=== PATIENT | female | born 1965 | race Caucasian/White ===

== ENCOUNTER 2018-01-07 23:10 | Emergency (ER) | payer BC, OTHER ==
[2018-01-08] MEDS ORDERED: GLUCAGON 1 MG/VIAL ONE (00:17)
[2018-01-08] MEDS ORDERED: ONDANSETRON 4 MG/2 ML VIAL ONE (00:30)
--- NOTE | 2018-01-08 02:36 | ER ---
Nurse's Notes [facility] Name: Perlita Sheppard Age: 53 yrs Sex: Female : 1965 Arrival Date: 01/07/2018 Time: 23:11 Bed 15 Private MD: Diagnosis: Food in esophagus-resolved Presentation: 01/07 23:36 Presenting complaint: Patient states: she had a gastric bypass 11 years ago and bb occasionally gets something stuck but today is the worst episode she has ever had. She has had a piece of steak stuck in her throat x 6 hours and has been vomiting multiple times. Transition of care: patient was not received from another setting of care. Onset of symptoms was January 07, 2018. Initial Sepsis Screen: Does the patient meet any 2 criteria? No. Patient's initial sepsis screen is negative. Does the patient have a suspected source of infection? No. Patient's initial sepsis screen is negative. Care prior to arrival: None. 23:36 Method Of Arrival: Ambulatory bb 23:36 Acuity: LAZARO 2 bb Triage Assessment: 23:40 General: Appears in no apparent distress. uncomfortable, Behavior is calm, cooperative. bb Pain: Complains of pain in esopagus Pain currently is 7 out of 10 on a pain scale. EENT: Reports she has a piece of steak stuck in her throat. Neuro: Level of Consciousness is awake, alert, obeys commands, Oriented to person, place, time, situation. Cardiovascular: No deficits noted. Respiratory: Respiratory effort is even, unlabored. GI: Reports vomiting. Derm: Skin is pink, warm \T\ dry. Musculoskeletal: Circulation, motion, and sensation intact. 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 - Social history:: Smoking status: Patient/guardian denies using tobacco, Patient/guardian denies using alcohol, street drugs. Screenin:44 Abuse screen: Denies threats or abuse. Nutritional screening: pt had gastric bypass bb occasionally gets foreign body stuck in throat. Tuberculosis screening: No symptoms or risk factors identified. Fall Risk None identified. Assessment: 23:44 Reassessment: No changes from previously documented assessment. see triage assessment. bb 01/08 01:17 Reassessment: Patient and/or family updated on plan of care and expected duration. Pain bb level reassessed. Patient is alert, oriented x 3, equal unlabored respirations, skin warm/dry/pink. states she feels more relaxed and less nauseous but it still feels like it is stuck Patient states feeling better. 02:56 Reassessment: Patient is alert, oriented x 3, equal unlabored respirations, skin bb warm/dry/pink. pt states her throat is clear but irritated verbalized understanding of and agrees to plan of care discharge instructions given pt ambulated with steady gait to exit accompanied by spouse Patient states feeling better. Vital Signs: 01/07 23:40 BP 138 / 69; Pulse 63; Resp 18 S; Temp 98.4(O); Pulse Ox 99% on R/A; Weight 72.57 kg bb (R); Height 5 ft. 3 in. (160.02 cm) (R); Pain 7/10; 01/08 01:19 BP 109 / 61; Pulse 58; Resp 16 S; Pulse Ox 98% on R/A; bb 02:57 BP 116 / 67; Pulse 68; Resp 16 S; Temp 98.1(O); Pulse Ox 98% ; bb 01/07 23:40 Body Mass Index 28.34 (72.57 kg, 160.02 cm) bb ED Course: 01/07 23:11 Patient arrived in ED. am2 23:29 Nina Roberts, SYED is Primary Nurse. bb 23:34 Jose Lucia NP is PHCP. pm1 23:34 Tomasz Murphy MD is Attending Physician. pm1 23:38 Triage completed. bb 23:40 Arm band placed on Patient placed in an exam room, on a stretcher, on pulse oximetry. bb Family accompanied patient. 23:44 Patient has correct armband on for positive identification. Call light in reach. Side bb rails up X 1. Adult w/ patient. Pulse ox on. NIBP on. 01/08 00:20 Inserted saline lock: 22 gauge in right antecubital area, using aseptic technique. bb 02:34 Noel Maria MD is Referral Physician. pm1 02:58 No provider procedures requiring assistance completed. IV discontinued, intact, bb bleeding controlled, No redness/swelling at site. Pressure dressing applied. Administered Medications: 00:25 Drug: Glucagon 1 mg Route: IVP; Site: right antecubital; bb 02:30 Follow up: Response: Marked relief of symptoms bb 00:34 Drug: Zofran 4 mg Route: IVP; Site: right antecubital; bb 01:30 Follow up: Response: Nausea is decreased bb Outcome: 02:35 Discharge ordered by . pm1 02:58 Discharged to home ambulatory, with family. bb 02:58 Condition: stable 02:58 Discharge instructions given to patient, Instructed on discharge instructions, follow up and referral plans. Demonstrated understanding of instructions, follow-up care. 02:59 Patient left the ED. bb Signatures: Nina Roberts RN RN bb Jose Lucia, KENISHA SOFTWARE TOOLS ENGINEER pm1 Radha Ny am2
--- NOTE | 2018-01-08 02:36 | EDPHYS ---
Physician Documentation [facility] Name: Perlita Sheppard Age: 53 yrs Sex: Female : 1965 Arrival Date: 01/07/2018 Time: 23:11 Bed 15 Private MD: ED Physician Tomasz Murphy HPI: 01/08 01:00 This 53 yrs old Female presents to ER via Ambulatory with complaints of pm1 Foreign Body In Throat. 01:00 Patient with a history of food bolus in the past. She has had gastric bypass surgery pm1 and has redmond's esophagus with three dilations. Patient ate a piece of deer meat and started feeling the sensation that the food was stuck. No drooling but the patient vomits every time she tries to drink down water. Food feels like it is stuck in the epigastric area. 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 - Social history:: Smoking status: Patient/guardian denies using tobacco, Patient/guardian denies using alcohol, street drugs. ROS: 01/08 01:00 Constitutional: Negative for fever, chills, and weight loss, Eyes: Negative for injury, pm1 pain, redness, and discharge, ENT: Negative for injury, pain, and discharge, Neck: Negative for injury, pain, and swelling, Cardiovascular: Negative for chest pain, palpitations, and edema, Respiratory: Negative for shortness of breath, cough, wheezing, and pleuritic chest pain, Back: Negative for injury and pain, : Negative for injury, bleeding, discharge, and swelling, MS/Extremity: Negative for injury and deformity, Skin: Negative for injury, rash, and discoloration, Neuro: Negative for headache, weakness, numbness, tingling, and seizure. Abdomen/GI: Positive for vomiting, Negative for abdominal pain, diarrhea. Exam: 01:00 Constitutional: This is a well developed, well nourished patient who is awake, alert, pm1 and in no acute distress. Head/Face: Normocephalic, atraumatic. Chest/axilla: Normal chest wall appearance and motion. Nontender with no deformity. No lesions are appreciated. Cardiovascular: Regular rate and rhythm with a normal S1 and S2. No gallops, murmurs, or rubs. Normal PMI, no JVD. No pulse deficits. Respiratory: Lungs have equal breath sounds bilaterally, clear to auscultation and percussion. No rales, rhonchi or wheezes noted. No increased work of breathing, no retractions or nasal flaring. Abdomen/GI: Soft, non-tender, with normal bowel sounds. No distension or tympany. No guarding or rebound. No evidence of tenderness throughout. Back: No spinal tenderness. No costovertebral tenderness. Full range of motion. Skin: Warm, dry with normal turgor. Normal color with no rashes, no lesions, and no evidence of cellulitis. MS/ Extremity: Pulses equal, no cyanosis. Neurovascular intact. Full, normal range of motion. Vital Signs: 01/07 23:40 BP 138 / 69; Pulse 63; Resp 18 S; Temp 98.4(O); Pulse Ox 99% on R/A; Weight 72.57 kg bb (R); Height 5 ft. 3 in. (160.02 cm) (R); Pain 7/10; 01/08 01:19 BP 109 / 61; Pulse 58; Resp 16 S; Pulse Ox 98% on R/A; bb 02:57 BP 116 / 67; Pulse 68; Resp 16 S; Temp 98.1(O); Pulse Ox 98% ; bb 01/07 23:40 Body Mass Index 28.34 (72.57 kg, 160.02 cm) bb MDM: 01/07 23:47 Patient medically screened. pm1 01/08 02:01 Data reviewed: vital signs. Data interpreted: Pulse oximetry: on room air is 98 %. pm1 Interpretation: normal. 02:01 ED course: Patient able to drink water without vomiting.. pm1 02:31 Physician consultation: Noel Maria MD was called at 02:32, was contacted at 02:32, pm1 regarding patient's condition, and will see patient in office, 0900. tomorrow, EGD can be performed in the office tomorrow. 02:33 ED course: Told patient about follow up appointment in the office at 0900 tomorrow. pm1 Patient feels that her food bolus has now completely passed into the stomach. 01/08 00:02 Order name: IV Saline Lock; Complete Time: 00:34 pm1 Administered Medications: 00:25 Drug: Glucagon 1 mg Route: IVP; Site: right antecubital; bb 02:30 Follow up: Response: Marked relief of symptoms bb 00:34 Drug: Zofran 4 mg Route: IVP; Site: right antecubital; bb 01:30 Follow up: Response: Nausea is decreased bb Disposition: 03:56 Co-signature as Attending Physician, Tomasz Murphy MD. Disposition: 01/08/18 02:35 Discharged to Home. Impression: Food in esophagus - resolved. - Condition is Stable. - Medication Reconciliation Form, Thank You Letter form. - Follow up: Emergency Department; When: As needed; Reason: Worsening of condition. Follow up: Noel Maria MD; When: 9:00 AM; Reason: Recheck today's complaints, Continuance of care, Re-evaluation by your physician. - Problem is new. - Symptoms are resolved. Signatures: Nina Roberts RN RN bb Jose Lucia, VEHICLE MAINTENANCE TECHNICIAN VEHICLE MAINTENANCE TECHNICIAN pm1 Tomasz Murphy MD MD
== END 2018-01-08 02:59 | disposition home or self-care (01) ==
LOC: ER 23:10
DX: R11.10 Vomiting, unspecified (principal); I10 Essential (primary) hypertension; K21.9 Gastro-esophageal reflux disease without esophagitis; Z98.84 Bariatric surgery status
CPT/HCPCS: 96374; 96375; 99283; J1610; J2405